=== PATIENT | female | born 1970 | race African-American/Black ===

== ENCOUNTER 2024-10-15 11:00 | Emergency (ER) | payer BC, OTHER ==
[~2024-10-15] VITALS: Ht 154.9 cm; Wt 73.0 kg
[2024-10-15 11:02] VITALS: PULSE 88; RESP 18; O2SAT 99
[2024-10-15 11:04] VITALS: BP 158/84; TEMP 36.1; O2SAT 100
[2024-10-15 11:42] LABS: BASOPHILS % 0.7 % (0.0-2.0); EOSINOPHILS % 0.1 % (0.0-5.0); HEMATOCRIT. 40.9 % (36.0-48.0); HEMOGLOBIN. 13.8 g/dL (12.0-16.0); LYMPHOCYTES % 12.5 % (20.0-50.0); MEAN CORPUSCULAR HEMOGLOBIN 29.7 pg (28.0-32.0); MEAN CORPUSCULAR HGB CONC 33.7 g/dL (31.0-37.0); MEAN CORPUSCULAR VOLUME 88.1 fL (81.0-99.0); MEAN PLATELET VOLUME 7.4 fl (7.4-10.4); MONOCYTES % 3.3 % (2.0-8.0); NEUTROPHILS % 83.4 % (40.0-76.0); PLATELET 399 x1000/uL (130-400); RED BLOOD CELL COUNT 4.64 mill/uL (4.2-5.4)
[2024-10-15 11:55] LABS: CARBON DIOXIDE 23 mEq/L (21-32); CHLORIDE 106 mEq/L (98-107); POTASSIUM 3.5 mEq/L (3.5-5.1); SODIUM 144 mEq/L (136-145)
[2024-10-15 11:56] LABS: CALCIUM 10.1 mg/dL (8.7-10.4)
[2024-10-15 12:00] LABS: CREATININE 1.1 mg/dL (0.6-1.0)
[2024-10-15 12:01] LABS: GLUCOSE 199 mg/dL (70-105); UREA NITROGEN BLOOD 10 mg/dL (9-23)
[2024-10-15 12:02] LABS: ALANINE AMINOTRANSFERASE 13 IU/L (10-49)
[2024-10-15 12:03] LABS: ALBUMIN 5.2 g/dL (3.2-4.8); ASPARTATE AMINOTRANSFERASE 19 IU/L (<34); BILIRUBIN DIRECT 0.1 mg/dL (<=3.0); BILIRUBIN TOTAL 0.4 mg/dL (0.1-1.0); PROTEIN TOTAL 8.8 g/dL (6.0-8.3); TROPONIN I HIGH SENSITIVITY < 4 ng/L (3.0-34)
[2024-10-15] MEDS: ONDANSETRON HCL 4MG/2ML INJ IV ONE (12:03)
[2024-10-15] MEDS: SODIUM CHLORIDE 0.9% 1,000 ML IV ONE (12:03)
[2024-10-15] MEDS: KETOROLAC 15MG/ML VIAL IV ONE (12:03)
[2024-10-15] MEDS: METOCLOPRAMIDE HCL 10MG/2ML VIAL IV ONE (12:03)
[2024-10-15] MEDS ORDERED: MAG-55 MT (14:18)
[2024-10-15] MEDS ORDERED: NAPR-1486 MT (14:18)
[2024-10-15] MEDS ORDERED: ONDA-239 PO (14:18)
== END 2024-10-15 15:20 | disposition home or self-care (01) ==
LOC: ER 11:00
DX: R11.2 Nausea with vomiting, unspecified (principal); Z90.710 Acquired absence of both cervix and uterus; Z90.49 Acquired absence of other specified parts of digestive tract; Z79.899 Other long term (current) drug therapy
CPT/HCPCS: 80076; 80048; 83690; 85025; 84484; 36415; 93005; 96361; 96374; 96375; 99284; J1885; J2765; J2405; J7030; Z7610